=== PATIENT | female | born 2000 | race Caucasian/White ===

== ENCOUNTER 2022-09-10 13:27 | Emergency (ER) | payer OTHER, SELFPAY ==
[2022-09-10 13:40] VITALS: BP 108/65; PULSE 105; RESP 20; TEMP 36.6; O2SAT 100
--- NOTE | 2022-09-10 15:03 | ED.DENTAL ---
HPI - Dental/Oral General Chief complaint: Dental/Oral Stated complaint: tooth pain/swelling Time Seen by Provider: 09/10/22 14:55 Source: patient, RN notes reviewed and old records reviewed Mode of arrival: ambulatory Limitations: no limitations History of Present Illness HPI Narrative: #17 tooth with swelling of22 year old female who presents to [facility] with complaints of dental pain and some facial swelling to the left posterior jaw area since yesterday. Patient reports most posterior tooth on left back tooth noted to have swelling of gum and redness . Patient has reports no dentist, list given. Patient reports no difficulty swallowing or any trismus noted, respirations even and nonlabored, SAO2 100% on room air. Patient is 4 1/2 months . MD Complaint: tooth pain Location: Tooth # (#17) Onset (ago): day(s) (1) Severity scale (1-10): 8 Treatment prior to arrival: oral analgesic (Tylenol) Related Data Home Medications Medication Instructions Recorded Confirmed ondansetron 4 mg disintegrating 4 mg PO Q8-10H PRN Nausea 09/10/22 09/10/22 tablet Allergies Allergy/AdvReac Type Severity Reaction Status Date / Time No Known Allergies Allergy Verified 09/10/22 13:48 Review of Systems Review of Systems: CONSTITUTIONAL: Denies fever, chills, or sweats. ENT: Denies rhinorrhea, congestion, sore throat, or otalgia. Reports dental pain with swelling to left posterior jaw region CARDIOVASCULAR: Denies chest pain, palpitations, or edema. RESPIRATORY: Denies cough or dyspnea. SKIN: Denies rash or itching. MUSCULOSKELETAL: Denies myalgia. NEUROLOGIC: Denies headache All systems reviewed & are unremarkable except as noted in HPI and below PMFSH Social History Social History (Updated 09/12/22 @ 14:04 by Sarah June NP) Smoking status: Never smoker Gender identity (if verbalized by the patient): Female Comments At time of signature, agree with nursing past medical, surgical, social and family history. There is no relevant family history pertinent to the presenting complaint Exam Narrative: GENERAL: Well-appearing, well-nourished, and in no acute distress. HEAD: Normocephalic, atraumatic. EYES: PERRLA and E ENT: Nares clear, no rhinorrhea or epistaxis. Mucous membranes moist. #17 tooth with red swollen gum tooth has broken edge facial swelling present to left posterior jaw, No Leo angina or trismus noted NECK: Supple.no lymphadenopathy CHEST: Clear to auscultation. No respiratory distress.SAO2 100% on room air HEART: Regular rate and rhythm. No murmur heard. Normal peripheral pulses. SKIN: Warm, dry, no rash. NEURO: No focal deficits. Alert and oriented x3. Course Course Emergency Course: Patient is aware of diagnosis, understands and agrees to treatment plan. Anticipatory guidance given. Patient agrees to follow-up as directed and is aware of reasons to seek care at the emergency department. Portions of this record may have been created with voice recognition software Level of Care: Express Care Visit Vital Signs Vital signs: Vital Signs Temperature 36.6 C 09/10/22 13:40 Pulse Rate 105 H 09/10/22 13:40 Respiratory Rate 20 09/10/22 13:40 Blood Pressure 108/65 09/10/22 13:40 Pulse Oximetry 100 09/10/22 13:40 Oxygen Delivery Room Air 09/10/22 13:40 Temperature 36.6 C 09/10/22 13:40 Pulse Rate 105 H 09/10/22 13:40 Respiratory Rate 20 09/10/22 13:40 Blood Pressure 108/65 09/10/22 13:40 Pulse Oximetry 100 09/10/22 13:40 Oxygen Delivery Room Air 09/10/22 13:40 Reviewed MDM - Dental/Oral MDM Narrative Medical decision making narrative: Patients pain and complaint coupled with physical findings are consistent with dentalgia. There are no focal signs of space occupying lesions that are compromising to the airway; no dysphagia, odynophagia, dysphonia, or dyspnea. No uvular deviation or soft palate edema. Patient is non-toxic appearing. The
== END 2022-09-10 15:22 | disposition home or self-care (01) ==
PROVIDERS: Emergency Provider Registered Nurse
DX: O99.612 Diseases of the digestive system complicating pregnancy, second trimester (principal); Z3A.00 Weeks of gestation of pregnancy not specified; K04.7 Periapical abscess without sinus
CPT/HCPCS: 99213; G0463

== ENCOUNTER 2023-05-27 13:45 | Emergency (ER) | payer SELFPAY ==
--- NOTE | 2023-05-27 13:51 | ED.DENTAL ---
HPI - Dental/Oral General Chief complaint: Dental/Oral Stated complaint: Toothache Time Seen by Provider: 05/27/23 13:52 Source: patient and RN notes reviewed Mode of arrival: ambulatory Limitations: no limitations History of Present Illness HPI Narrative: 22-year-old female presents with concern for right lower dental pain for 1 week. She reports right jaw swelling. She reports she has a dentist appointment in 2 months. She has been taking ibuprofen. MD Complaint: tooth pain Related Data Home Medications Medication Instructions Recorded Confirmed ondansetron 4 mg disintegrating 4 mg PO Q8-10H PRN Nausea 09/10/22 09/10/22 tablet Allergies Allergy/AdvReac Type Severity Reaction Status Date / Time No Known Allergies Allergy Verified 09/10/22 13:48 Review of Systems Review of Systems: CONSTITUTIONAL: Denies malaise, chills, sweats, or fever. EYES: Denies visual changes, redness, or discharge. ENT: Denies rhinorrhea, congestion, sinus pain, otalgia and sore throat. Reports right lower dental pain CARDIOVASCULAR: Denies chest pain, palpitations, or edema. RESPIRATORY: Denies cough. Denies dyspnea. GASTROINTESTINAL: Denies abdominal pain, nausea, vomiting, diarrhea SKIN: Denies rash or itching. MUSCULOSKELETAL: Denies myalgia. NEUROLOGIC: Denies headache. All systems reviewed & are unremarkable except as noted in HPI and below PMFSH Social History Social History (Updated 09/12/22 @ 14:04 by Sarah June NP) Smoking status: Never smoker Gender identity (if verbalized by the patient): Female Comments At time of signature, agree with nursing past medical, surgical, social and family history. There is no relevant family history pertinent to the presenting complaint Exam Narrative: GENERAL: Well-appearing, well-nourished, and in no acute distress. HEAD: Normocephalic, atraumatic. EYES: PERRLA, sclera clear, and EOMI. No nystagmus. ENT: Nares clear, turbinates pink, no rhinorrhea or epistaxis. Mucous membranes moist. Decay noted in tooth number 30 with mild sharp swelling NECK: Supple. No lymphadenopathy. CHEST: No respiratory distress. Speaks in full sentences. HEART: Regular rate and rhythm. SKIN: Warm, dry, no visible rash. NEURO: Alert and oriented x3. PSYCH: Normal mood and affect Course Course Emergency Course: Patient is aware of diagnosis, understands and agrees to treatment plan. Anticipatory guidance given. Patient agrees to follow-up as directed and is aware of reasons to seek care at the emergency department. Portions of this record may have been created with voice recognition software Level of Care: Express Care Visit Vital Signs Vital signs: Reviewed. MDM - Dental/Oral MDM Narrative Medical decision making narrative: Patients pain and complaint coupled with physical findings are consistant with dentalgia. There are no focal signs of space occupying lesions that are compromising to the airway; no dysphagia, odynophagia, dysphonia, or dyspnea. No uvular deviation or soft palate edema. Patient is non-toxic appearing. The floor of the mouth is soft with no signs of Leo's Angina; no induration below mandible, no neck pain. Patient is without trismus or drooling and able to swallow secretions. Patient is felt appropriate for discharge home with dental follow up. Differential Diagnosis Differential diagnosis: Likely gingival abscess, dental caries, toothache, dental abscess, fracture of tooth and aphthous ulcer Lab Data Attestation: I reviewed the patient's lab results. Critical Care Time Critical Care Time Critical Care Time: No Discharge Plan Discharge Clinical Impression: Pain, dental Patient Disposition: Home, Self-Care Condition: Stable Instructions: Antibiotic Form Additional Instructions: Take antibiotic as directed Avoid temperature extremes May apply heat or ice to the face Gentle brushing and flossing Take 2 extra strength Tylenol
[2023-05-27 13:53] VITALS: BP 126/49; PULSE 77; RESP 16; TEMP 36.7; O2SAT 99
== END 2023-05-27 14:03 | disposition home or self-care (01) ==
PROVIDERS: Emergency Provider Nurse Practitioner
DX: K08.89 Other specified disorders of teeth and supporting structures (principal); I10 Essential (primary) hypertension
CPT/HCPCS: 99213; G0463

== ENCOUNTER 2023-08-22 10:04 | Emergency (ER) | payer OTHER, SELFPAY ==
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
[2023-08-22 10:35] VITALS: BP 139/79; PULSE 89; RESP 18; TEMP 36.8; O2SAT 100
== END 2023-08-22 11:09 | disposition home or self-care (01) ==
PROVIDERS: Emergency Provider Nurse Practitioner
DX: Z04.1 Encounter for examination and observation following transport accident (principal)
CPT/HCPCS: 99212; G0463

== ENCOUNTER 2024-01-06 14:42 | Emergency (ER) | payer OTHER, SELFPAY ==
[2024-01-06 14:52] VITALS: BP 115/72; PULSE 94; RESP 18; TEMP 37.1; O2SAT 99
--- NOTE | 2024-01-06 15:01 | ED.DENTAL ---
HPI - Dental/Oral General Chief complaint: Dental/Oral Stated complaint: Toothache History of Present Illness HPI Narrative: patient is a 23-year-old female, , 32 weeks , presents to [facility] Care with right lower dental pain, she is a known dental cavity in her wisdom tooth but cannot have the tooth extracted until She delivered her baby. She denies fevers or chills. She has no facial swelling, sublingual swelling. She denies related complaints. She endorses good movement. she is taking Tylenol and using topical lidocaine gel with minimal relief. She denies any additional complaints. She has not established dentist at [facility] and will make an appointment with them for follow-up. Related Data Home Medications Medication Instructions Recorded Confirmed Daily 08/22/23 Allergies Allergy/AdvReac Type Severity Reaction Status Date / Time No Known Allergies Allergy Verified 01/06/24 14:53 Review of Systems ENT: Comments: Refer to [facility] Social History Social History Smoking status: Never smoker Gender identity (if verbalized by the patient): Female Exam Const: General: cooperative, healthy appearing, comfortable and no acute distress Nutritional Appearance: average body habitus and well nourished Orientation/consciousness: oriented to person, oriented to place, oriented to time and patient oriented x3 Limitations: no limitations HENMT: Head: normal to inspection Ears: hearing grossly normal bilaterally, external ears normal and TM's normal bilaterally Face and sinus: normal facial exam and sinuses nontender Teeth and gingiva: caries Teeth image: 1. gross decay noted Other: no intraoral abscess, no sublingual swelling, no trismus Eyes: General: appearance normal, both eyes and all related structures Conjunctivae: conjunctivae normal Pupils: Equal, round and reactive pupils present EOM: EOMs intact bilaterally Neck: Neck: normal visual inspection, full ROM, no lymphadenopathy, no meningeal signs and trachea midline Thyroid: thyroid normal Carotids: normal carotid upstroke Lymphatic: no lymphadenopathy noted Chest: Chest palpation & inspection: normal inspection of the chest Resp: Effort & Inspection: normal respiratory effort Cardio: Rate: regular rate Rhythm: regular rhythm GI: Inspection: normal to inspection ( gravid uterus) Back/Spine/Pelvis: Back: no CVA tenderness Skin: General skin exam: normal color Lesions: no lesions Rashes: no rashes Neuro: General: oriented to person, oriented to place, oriented to time and patient oriented x3 Cranial nerves: Yes CN's II-XII intact bilaterally Cognition (Neuro): normal cognition Speech: normal speech Motor exam (neuro): 5/5 motor strength present throughout Extrem: General: normal to inspection and full ROM Course Course Emergency Course: patient has obvious dental decay and recurring dental infection a right lower molar/wisdom tooth. She does have an established dentist. They are waiting for her to complete her before extracting issues. Will treat with Augmentin b.i.d. for 10 days. Patient is encouraged to pressure teeth well, to follow up with her primary care provider / OBGYN if she is unable to see her dentist in timely manner as she is managed at [facility] dental [facility]. ER she developed swelling in the sublingual space. Patient agreeable to plan. Level of Care: Express Care Visit (25447) Vital Signs Vital signs: Vital Signs Temperature 37.1 C 01/06/24 14:52 Pulse Rate 94 01/06/24 14:52 Respiratory Rate 18 01/06/24 14:52 Blood Pressure 115/72 01/06/24 14:52 Pulse Oximetry 99 01/06/24 14:52 Oxygen Delivery Room Air 01/06/24 14:52 Temperature 37.1 C 01/06/24 14:52 Pulse Rate 94 01/06/24 14:52 Respiratory Rate 18 01/06/24 14:52 Blood Pressure 115/72
--- NOTE | 2024-01-06 16:35 | PC.NURSE ---
called and requested pharmacy to be changed to [facility] in [place] and was done.
== END 2024-01-06 15:13 | disposition home or self-care (01) ==
PROVIDERS: Emergency Provider Nurse Practitioner Family
DX: O99.613 Diseases of the digestive system complicating pregnancy, third trimester (principal); Z3A.32 32 weeks gestation of pregnancy; K02.9 Dental caries, unspecified
CPT/HCPCS: 99213; G0463

== ENCOUNTER 2024-08-09 12:59 | Emergency (ER) | payer OTHER, SELFPAY ==
[2024-08-09 13:09] VITALS: BP 106/70; PULSE 88; RESP 16; TEMP 36.9; O2SAT 98
[2024-08-09 13:27] LABS: EDCOVIDSCREEN Negative (Negative); EDINFLUASCREEN Negative (Negative); EDINFLUBSCREEN Negative (Negative)
--- NOTE | 2024-08-09 13:40 | ED.FEVER ---
HPI - Fever General Chief Complaint: Fever Stated Complaint: fever Time Seen by Provider: 08/09/24 13:40 Source: patient, RN notes reviewed and old records reviewed Mode of arrival: ambulatory Limitations: no limitations History of Present Illness HPI Narrative: 24-year-old female presents to the [facility] stating that she was not feeling well last week. Last she believes she had a fever, took [id number] products. has felt better the last 2 days. States that she needs a work note to return to work. Related Data Home Medications ?Medication ?Instructions ?Recorded ?Confirmed ?Last Taken ?Type No Home Medications 08/09/24 Unknown History Allergies Allergy/AdvReac Type Severity Reaction Status Date / Time No Known Allergies Allergy Verified 08/09/24 13:09 Review of Systems Review of Systems: All systems reviewed & are unremarkable except as noted in HPI and below Constitutional: Constitutional: Reports as per HPI, Reports body ache(s), Reports fatigue and Reports fever(s) ENT: Reports system reviewed and no additional complaints, except as documented Cardiovascular: Cardiovascular: Reports no additional cardiovascular complaints, Denies chest pain and Denies dyspnea Respiratory: Respiratory: Reports no additional respiratory complaints, Denies chest congestion, Denies cough and Denies dyspnea Musculoskeletal: Musculoskeletal: Reports no additional musculoskeletal complaints Integumentary/Breasts: Skin/Breast: Reports system reviewed and no additional complaints, except as docu PMFSH Social History Social History Smoking status: Never smoker Gender identity (if verbalized by the patient): Female Comments At the time of my signature, I reviewed and agree with the nursing past medical, surgical, social, and family history. There is no relevant family history pertinent to the patient complaint. Exam Const: General: cooperative, healthy appearing, comfortable, no acute distress, well developed, alert and well nourished Nutritional Appearance: well nourished and obese Orientation/consciousness: patient oriented x3 Limitations: no limitations HENMT: Head: normal to inspection Ears: hearing grossly normal bilaterally, external ears normal, TM's normal bilaterally, EAC's normal, mastoids normal and no periauricular adenopathy Mouth: Yes Normal oral and palatal mucosa present, Yes lip normal, Yes tongue normal and Yes moist mucous membranes Throat: posterior oropharynx normal, uvula midline and no uvular edema Eyes: General: appearance normal, both eyes and all related structures Alignment and Position: alignment normal Neck: Neck: normal visual inspection, full ROM, no lymphadenopathy and no meningeal signs Chest: Chest palpation & inspection: normal inspection of the chest Resp: Effort & Inspection: normal respiratory effort and able to speak in complete sentences Auscultation: clear to auscultation bilaterally, no crackles, no rales, no rhonchi and no wheezes Cardio: Rate: regular rate Skin: General skin exam: normal color and no rashes or lesions noted Neuro: General: patient oriented x3, gait normal, moves all extremities and no meningeal signs Cognition (Neuro): normal cognition Speech: normal speech Gait exam (Neuro): Normal gait present Extrem: General: normal to inspection, full ROM, capillary refill normal and normal gait Psych: Appearance: grossly normal and well kempt Mental Status: mental status grossly normal Speech and movement: Normal speech and movement present and Clear speech present Affect: normal affect Attitude: cooperative Course Course Level of Care: Express Care Visit Vital Signs Vital signs: Vital Signs Temperature 98.5 F 08/09/24 13:09 Pulse Rate 88 08/09/24 13:09 Respiratory Rate 16 08/09/24 13:09 Blood Pressure 106/70 08/09/24 13:09 Pulse Oximetry 98 08/09/24 13:09 Oxygen Delivery Room Air 08/09/24 13:09 Temperature 98.5 F 08/09/24 13:09 Pulse Rate 88 08/09/24 13:09 Respiratory Rate 16 08/09/24 13:09 Blood Pressure 106/70 08/09/24 13:09 Pulse Oximetry 98 08/09/24 13:09 Oxygen Delivery Room Air 08/09/24 13:09 Reviewed MDM - Fever MDM Narrative Medical decision making narrative: Patient sitting comfortably in exam room. Nontoxic, vitals stable. Patient in no acute distress. Patient presents stating that she was not feeling well last week, last 2 days have been feeling better. Flu and COVID were negative in clinic. Patient appropriate for outpatient treatment and follow-up Discharge instructions reviewed with patient, as well as provided in writing per nursing staff. The instructions also include specific and strict return/GO TO THE ER as well as f/u information. All questions have been answered, and the patient deny any further questions with discharge and discharge plan. Some parts of this dictation were generated by voice recognition software and may contain typographical and/or grammatical inaccuracies. Differential Diagnosis Differential diagnosis: Likely fever of unknown origin, viral infection and influenza Lab Data Labs: Lab Results 08/09/24 Range/Units 13:25 POC Influenza A Ag Negative (Negative) POC Influenza B Ag Negative (Negative) POC SARS CoV-2 Ag Negative (Negative) Reviewed Critical Care Time Critical Care Time Critical Care Time: No Discharge Plan Discharge Clinical Impression: Viral infection Patient Disposition: Home, Self-Care Condition: Stable Instructions: Antibiotic Form, Viral Syndrome (ED) Additional Instructions: [facility] rapid COVID test were negative Your rapid flu test was negative Your symptoms are likely due to a viral illness, which is not treated with antibiotics. Typically viral infections last 7-10 days, can linger for couple of weeks. It is very important to treat your symptoms. Drink plenty of water, Gatorade, Pedialyte, ice pops or Jell-O. -Alternate Tylenol and Motrin per package directions for fever or pain. You can alternate every 4 hours -Antihistamine medication such as Zyrtec/Claritin/Nellie during the day can help improve symptoms. -doing daily nasal irrigations can help relieve pressure your sinuses. Things like a Neti pot -Use Flonase twice a day for 5 days then daily to help reduce the inflammation and dry up your sinuses. -You can also use Mucinex. Be sure to drink plenty of water with this medication at least 8 ounces with every dose and it is important to drink 8 to 10 glasses of water per day. Water is a natural decongestant -Eat and drink things that are easy to swallow, like tea or soup, or popsicles. -Oral rinses such as: Salt water gargles and/or may use topical anesthetic (eg. Chloraseptic spray) or lozenges to relieve dryness or throat pain). -Frequent hand washing or hand cut off saw grader is one of the best ways to prevent spread of infection. -Using a vaporizer or humidifier at night will also help thin secretions and help with coughing up phlegm. -Follow up with primary care provider in 7-10 days if condition is not improving - For new or worsening symptoms go directly to the nearest ER Patient Language: Luxembourgish Prescriptions: No Action No Home Medications Follow-up/Referrals: PHYSICIAN,SALES ASSISTANT [employer] [Primary Care Provider] - Stand Alone Forms: Work/School Release IP Time of Disposition: 13:45
--- OUTSIDE RECORDS SUMMARY | 2024-08-09 14:10 | XMS_ITS | Referral Summary ---
Author Organization CC [facility] [address] Address [address] [place] [address] Phone Care Team Providers Care Utilities Manager Name Role Phone Dagmar Eli DO Unavailable [phone] No, Physician Primary Care Provider [phone] Encounters Date Type Department Care Team Description 07/26/2024 Results Follow-Up [address] [id number] Dagmar Eli DO 07/16/2024 2:36 PM HEARING DOG TRAINER - 07/16/2024 11:59 PM HEARING DOG TRAINER [place] [address] Screening for malignant neoplasm of cervix Discharge Disposition: Discharge to home or self care 07/16/2024 2:15 PM HEARING DOG TRAINER Office Visit [facility] [address] [place] [address] Dagmar Eli DO Encounter for annual routine gynecological examination (Primary Dx); Screening for malignant neoplasm of cervix; Encounter for counseling regarding contraception; Breakthrough bleeding on Nexplanon 07/05/2024 Telephone [facility] [address] [place] [address] Dagmar Eli DO Patient issue/concern 06/22/[facility] [address] [place] [address] Dagmar Eli DO 06/03/2024 Telephone [facility] [address] [place] [address] Dagmar Eli, from Last 3 Months Allergies Active Allergy Reactions Criticality Noted Date Comments Lactose Diarrhea Low 03/15/2024 Medications no115/iron/folic acid ( 19 ORAL) Active ondansetron ODT (ZOFRAN-ODT) 4 mg disintegrating tablet TAKE 1 TABLET BY MOUTH EVERY 8 HOURS NEEDED FOR NAUSEA AND VOMITING 30 tablet 03/03/20 24 Active Additional Information Patient not taking.Reported on 07/16/2024 docusate sodium (COLACE) 100 mg capsuleIndications :constipation,Stoo l Softener Take 1 capsule (100 mg total) by mouth 2 (two) times a day 60 capsule 1 03/16/20 24 Active Additional Information Patient not taking.Reported on 07/16/2024 ibuprofen (ADVIL,MOTRIN) 600 mg tabletIndications: Cramps Take 1 tablet (600 mg total) by mouth every 6 (six) hours as needed for pain 60 tablet 1 03/16/20 24 Active Additional Information Patient not taking.Reported on 07/16/2024 norgestimate-ethin yl estradioL (ORTHO-CYCLEN) 0.25-35 mg-mcg per tablet Take 1 tablet by mouth daily 28 tablet 14 07/17/19 25 Active Active Problems Problem Noted Date Diagnosed Date Supervision of normal in third trimest er 03/15/2024 Short interval between pregn ancies affecting in first trimester, antepartum 07/29/2023 Overview (07/29/2023): Last delivery 12/31/22 Insufficient care 07/28/2023 Overview (07/28/2023): Growth US 04/04 EFW 1988gm(4#6oz) 38.2%ile ; Anatomy completed Gestational HTN, third trimester 12/31/2022 Encounter for supervision of normal in first trimester 05/20/2022 Overview (08/12/2023): Dated by 6w4d PNL: O+/I/-/-, NR, Hep C NR GC/CT: neg UCx: neg Pap: LSIL Genetics: to be discussed at next visit History of gestational hypertension 05/20/2022 Overview (07/29/2023): Moderate risk factor for Pre-E and she BMI 40 at NOB which is another moderate risk factor. Plan for ASA for pre-eclampsia prophylaxis beginning at 12 weeks. Discussed with the patient today. Obesity affecting in first trimester 0 05/20/2022 Overview (07/29/2023): BMI 40 at NOB. Will plan for serial growth ultrasounds and testing at 34 weeks. Marijuana use 05/20/2022 Overview (05/20/2022): S/p counseling and cessation encouraged. Pt also vapes and was counseled on this as well with cessation encouraged. Viral disease in mother during 021 Overview (07/28/2023): Other viral diseases complicating , unspecified trimester; Progress: Stable Added By: Ashlee Olivo Add to Current Problems: YES ProblemStatus: Current Resolved Problems Problem Noted Date Diagnosed Date Resolved Date Encounter for routine child health examination without abnormal findings 12/19/2017 Attention deficit hyperactiv ity disorder (ADHD), predominantly inattentive type 01/10/2017 0 06/13/2022 Overview (03/05/2018): Dexamphetamine XR 30mg 1QD, 917 New Agreement Signed & UDS shows compliance. Adderall 20XR am. Immunizations Immunization Administration Dates Next Due DTaP 03/12/2007, 4,03/31/2003,12/30,2002 HPV9 02/02/2016 Hep B / HiB 03/31/2003,2002,2002 Hib (PRP-T) 11/17/2003 IPV 03/12/2007, 4,2002,09/23 Influenza, Trivalent, Preser vative Free, Intramuscular 03/16/2024 MMR 03/12/2007,08/18/2003 Meningococcal ACWY, Unspecified 12/21/2013 Tdap 03/16/2024,12/21/2013 Varicella 02/02/2016,09/29/2003 Social History Tobacco Use Types Packs/Day Years Used Date Smoking Tobacco: Former Vaping 2 019 - 03/2021 Smokeless Tobacco: Never Tobacco Cessation:Counseling Given: Not Answered Humiliation, Afraid, Rape, and Kick questionnair e Answer Date Recorded Within the last year, have y ou been afraid of your partner or ex-partner? No 01/02/2023 Within the last year, have y ou been humiliated or emotionally abused in other ways by your partner or ex-partner? No Within the last year, have y ou been kicked, hit, slapped, or otherwise physically hurt by your partner or ex-partner? No 01/02/2023 Within the last year, have y ou been raped or forced to have any kind of sexual activity by your partner or ex-partner? No 01/02/2023 Social Connection and Isolat ion Panel [NHANES] Answer Date Recorded In a typical week, how many times do you talk on the phone with family, friends, or neighbors? More than three times a week 03/15/2024 How often do you get togethe r with friends or relatives? Once a week 03/15/2024 How often do you attend chur or congregational services? Never 03/15/2024 Do you belong to any clubs o r organizations such as taoist groups, unions, fraternal or athletic groups, or school groups? No 03/15/2024 How often do you attend meet ings of the clubs or organizations you belong to? Never 03/15/2024 Are you , , di vorced, , never , or living with a partner? Living with partner 03/15/2024 AUDIT-C Answer Date Recorded Q1: How often do you have a drink containing alcohol? Never 03/15/2024 Q2: How many drinks containi ng alcohol do you have on a typical day when you are drinking? Patient does not drink Q3: How often do you have si x or more drinks on one occasion? Never 03/15/2024 Overall Financial Resource Strain (CARDIA) Answe r Date Recorded How hard is it for you to pa y for the very basics like food, housing, medical care, and heating? Not hard at all 03/15/2024 PHQ-2 Answer Date Recorded PHQ-2 Total Score (If total score is 3 or more points, staff should administer the PHQ-9) 0 03/15/2024 [facility] - Occupational Stress Questionnaire Answer Date Recorded Do you feel stress - tense, restless, nervous, or anxious, or unable to sleep at night because your mind is troubled all the time - these days? Not at all 03/15/2024 Exercise Vital Sign Answer Date Recorde d On average, how many days pe r week do you engage in moderate to strenuous exercise (like a brisk walk)? 7 days 03/15/2024 On average, how many minutes do you engage in exercise at this level? 30 min 03/15/2024 Hunger Vital Sign Answer Date Recorded Within the past 12 months, y ou worried that your food would run out before you got the money to buy more. Never true 03/15/20 24 Within the past 12 months, t he food you bought just didn't last and you didn't have money to get more. Never true 03/15/2024 PRAPARE - Transportation Answer Date Re corded In the past 12 months, has l ack of transportation kept you from medical appointments or from getting medications? No 08/2023 In the past 12 months, has l ack of transportation kept you from meetings, work, or from getting things needed for daily living? No 03/15/2024 Housing Stability Vital Sign Answer Alvarez e Recorded In the last 12 months, was t here a time when you were not able to pay the mortgage or rent on time? No 09/10/2023 In the last 12 months, how many places have you lived? 1 09/10/2023 In the last 12 months, was t here a time when you did not have a steady place to sleep or slept in a retirement (including now)? No 09/10/2023 [place] Depression Scale Answer Date Recorded [place] Depression Scale Total 0 01/02/2023 The thought of harming myself has occurred to me . Never 01/02/2023 PHQ-9 Answer Date Recorded PHQ-9 Total Score 0 03/01/2024 Housing Stability Vital Sign Answer Alvarez e Recorded In the last 12 months, was t here a time when you were not able to pay the mortgage or rent on time? No 03/15/2024 In the past 12 months, how m any times have you moved where you were living? 0 03/15/2024 At any time in the [facility], were you homeless or living in a retirement (including now)? No 03/15/2024 Personal Safety Answer Date Recorded Have you ever been in or are you currently in a harmful physical or emotional relationship or is someone making you feel afraid or unsafe? Denies 03/15/2024 Comments No Sex and Gender Information Value Date Recorded Sex Assigned at Not on file Legal Sex Female 11:36 AM HEARING DOG TRAINER Gender Identity Not on file Sexual Orientation Not on file Occupation Industry Job Start Date Job End Date Not on file Not on file Not on file Not on file Last Filed Vital Signs Vital Sign Reading Time Taken Comments Blood Pressure 122/80 07/16/2024 2:12 PM HEARING DOG TRAINER Pulse 102 03/16/2024 4:15 PM HEARING DOG TRAINER Temperature 35.8 C (96.4 F) 03/16/2024 4:15 PM HEARING DOG TRAINER Respiratory Rate 17 03/16/2024 4:15 PM HEARING DOG TRAINER Oxygen Saturation 95% 03/15/2024 2:14 PM HEARING DOG TRAINER Inhaled Oxygen Concentration - - Weight 104.8 kg (231 lb) 07/16/2024 2:12 PM HEARING DOG TRAINER Height 160 cm (5' 3 ) 03/01/2024 11:40 AM CDT Body Mass Index 40.92 03/01/2024 11:40 AM CDT Plan of Treatment Not on file Procedures Procedure Name Priority Date/Time Associated Diagnosis Comments PAP WITH REFLEX TO HIGH RISK HPV Routine 07/16/2024 11:20 AM HEARING DOG TRAINER Screening for malignant neoplasm of cervix HIGH RISK HPV DNA DETECTION WITH GENOTYPING Routine 07/16/2024 10:15 AM HEARING DOG TRAINER THINPREP PROCESSING (MOLECULAR COMPONENT) Routine 07/16/2024 9:30 AM HEARING DOG TRAINER Screening for malignant neoplasm of cervix HEPATITIS C ANTIBODY Routine 08/08/2023 11:30 AM CDT Encounter for supervision of other normal in first trimester 6 weeks gestation of N. GONORRHOEAE/C. TRACHOMATIS AMPLIFICATION Routine 07/29/2023 1:59 PM CDT Screen for sexually transmitted diseases from Last 3 Months or Most Recently Relevant to Health Maintenance Results * (ABNORMAL) Pap with reflex to High Risk HPV and Genotyping (Cytology Component) (07/16/2024 11:20 AM HEARING DOG TRAINER) Thin prep (Pap test) 07/16/2024 11:20 AM HEARING DOG TRAINER 07/16/2024 11:20 AM HEARING DOG TRAINER Narrative PATHOLOGY CH - 07/21/2024 4:18 PM CDT [facility] Department of Pathology [address] [place] [address] Final Report with Addendum Note to Patients: This report may contain a detailed description of human tissue sent by a health care provider to the laboratory for pathologic evaluation. The content of this report is essential for diagnosis and may provide important critical findings. This information may be unfamiliar to patients to review without a medical professional present. It is advised that the patient review this report in the presence of a health care provider who can answer questions and explain the details. Patient Name: TOD HOLLAND Address: [address] [place] [address] Gender: F : 2000 (Age: 23) Service: Location: N : [id number] [facility] #: [id number] Patient Type: SPECIMEN Taken: 07/16/2024 Received: 07/16/2024 Accessioned:: 07/19/2024 Reported: 07/21/2024 Physician(s): Edith Stewart D.O. Diagnosis: SOURCE OF SPECIMEN Imaged Thinprep Pap Test w/ Reflex HPV - Tunnel Form Placing Supervisor Cytologic Material: STATEMENT OF ADEQUACY - Satisfactory for evaluation; endocervical/transformation zone component present GENERAL CATEGORIZATION: - Epithelial cell abnormality INTERPRETATION: - Atypical squamous cells of undetermined significance; - High risk HPV test pending -- addendum to follow Tere MART(ASCP)Kris Mcconnell M.D. Report Electronically Reviewed and Signed Out By Kris Mcconnell M.D. 07/21/2024 16:18:11Addenda: HPV Test Interpretation (Normal-Negative for High Risk HPV) HPV HR 16- Not detected HPV HR 18-Not detected HPV HR non 16/18- Not detected Interpretive Data Nucleic acid amplification for detection of high-risk Human Papilloma virus (HPV) is performed by the Gunnar Joel 6800 HPV test. This assay specifically detects HPV- 16 and HPV-18 genotypes. The following HPV genotypes are detected as high-risk HPV: HPV-31, 33, 35, 39, 45, 51, 52, 56, 58, 59, 66, and 68. This assay has been approved by the [place] Food and Drug Administration for detection of HPV in cervical specimens collected by a physician using an endocervical brush/spatula or cervical broom and placed in the ThinPrep Pap Test PreservCyt collection containers. The performance characteristics of this test have been verified by the [facility] Molecular Infectious Disease laboratory. Correlate with reported cytology results, as applicable. Interpretive data last revised 22 BRITTNY Watkins(ASCP)Report Electronically Reviewed and Signed Out By BRITTNY Watkins(ASCP) 07/26/2024 11:47:20 Specimen(s) Received: A: Imaged Thinprep Pap Test w/ Reflex HPV - Tunnel Form Placing Supervisor Cytologic Material Clinical History: The Pap test is a screening test used to aid in the detection of cervical cancer and its precursors. It should not be the sole means by which malignant and premalignant lesions are diagnosed. Both false negative and false positive results may occur. It also has poor sensitivity for the detection of endometrial lesions and should not be used to evaluate suspected endometrial abnormalities. For these reasons it is most important to obtain Pap tests at regular intervals. The performance characteristics of some immunohistochemical stains, fluorescence in-situ hybridization tests and immunophenotyping by flow cytometry cited in this report (if any) were determined by the Surgical Pathology Department at [facility] as part of an ongoing water quality technician program and in compliance with federally mandated regulations drawn from the Clinical Laboratory Improvement Act of 1988 (CLIA '88). Some of these tests rely on the use of analyte specific reagents and are subject to specific labeling requirements by the [place] Food and Drug Administration. Such diagnostic tests may only be performed in a facility that is certified by the Department of Health and Human Services as a high complexity laboratory under CLIA '88. The FDA has determined that such clearance or approval is not necessary. This test is used for clinical purposes. It should not be regarded as investigational or for research. Nevertheless, federal rules concerning the medical use of analyte specific reagents require that the following disclaimer be attached to the report: This test was developed and its performance characteristics determined by the Surgical Pathology Department [facility]. It has not been cleared or approved by the U. S. Food and Drug Administration. Dagmar Eli DO LAB CYTOLOGY ORDERABLES Final Result PATHOLOGY [address] [place] [address] * High Risk HPV DNA Detection with Genotyping (Molecular component) (07/16/2024 10:15 AM HEARING DOG TRAINER) HPV HR 16 Not Detected Not Detected [facility] Comment:Testing performed by : [facility], [address] [place]., [address] HPV HR 18 Not Detected Not Detected [facility] Comment:Testing performed by : [facility], [address] [place]., [address] HPV HR Non 16/18 Not Detected Not Detected [facility] Comment: Interpretive Data Nucleic acid amplification for detection of high-risk Human Papilloma virus (HPV) is performed by the Gunnar Joel 6800 HPV test. This assay specifically detects HPV-16 and HPV-18 genotypes. The following HPV genotypes are detected as high-risk HPV: HPV-31, 33, 35, ,39, 45, 51, 52, 56, 58, 59, 66, and 68. This assay has been approved by the [place] Food and Drug Administration for detection of HPV in cervical specimens collected by a physician using an endocervical brush/spatula or cervical broom and placed in the ThinPrep Pap Test PreservCyt collection containers. The performance characteristics of this test have been verified by the [facility] Molecular Infectious Disease laboratory. Correlate with separately reported cytology results, as applicable. Interpretive data last revised 22 Testing performed by: [facility], [address] [place]., [address] Endocervical 07/16/2024 10:1 5 AM HEARING DOG TRAINER 07/22/2024 12:52 PM CDT Dagmar Eli DO LAB BODY FLUIDS AND STO OLS ORDERABLES Final Result Performing Organization Address City[facility] Co de Phone Number RAQUEL FARIA [address] [address] [place] [address] BJ * ThinPrep processing (Molecular component) (07/16/2024 9:30 AM HEARING DOG TRAINER) Pathologist [facility] ThinPrep processing (Molecular component) Specimen received for processing. [facility] Comment:Testing performed by : [facility], [address] [place]., [address] Endocervical 07/16/2024 9:30 AM HEARING DOG TRAINER 07/19/2024 2:14 PM CDT Dagmar Eli DO LAB BODY FLUIDS AND STO OLS ORDERABLES Final Result Performing Organization Address City/[facility] [place] Number [place] [address] [address] [place] [address] BJ * Hepatitis C antibody Blood (08/08/2023 11:30 AM CDT) Pathologist [facility] Hep C Ab Nonreactive Nonreactive Comment: Interpretive Data Nonreactive: Antibodies to HCV not detected. Does NOT exclude the possibility of recent exposure to HCV. Equivocal: Equivocal for HCV antibodies. Supplemental molecular testing will be automatically performed to determine infection status in accordance with current CDC screening recommendations. Reactive: Positive for HCV antibodies. This may represent current or past HCV infection. Supplemental molecular testing will be automatically performed to determine current infection status in accordance with current CDC screening recommendations. Interpretive data was last revised on 2019. Blood 08/08/2023 11:3 0 AM CDT 08/08/2023 7:52 PM CDT Dagmarrod CanalesPaola Sreedhar GARCIA LAB MICROBIOLOGY - GENE RAL ORDERABLES Edited Result - Final Performing Organization Address City/[facility]/ZIP Co de Phone Number BENJALEESA FARIA [address] [address] [employer] [address] * N. gonorrhoeae/C. trachomatis Amplification Thin prep (07/29/2023 1:59 PM CDT) C. trachomatis Not Detected [facility] Comment:Testing performed by : [facility], [address] [place] [address]., [address] N. gonorrhoeae Not Detected [facility] FARIA Comment: Interpretive Data This assay detects Chlamydia trachomatis and Neisseria gonorrhoeae by nucleic acid amplification testing (NAAT). This assay has been cleared by the [place] Food and Drug administration. The performance characteristics of this test have been verified by the [facility] Molecular Infectious Disease laboratory. The performance characteristics of this test have not been evaluated in individuals less than 14 years of age. Current Interpretive Data was last revised on 2023. Testing performed by: [facility], [address] [place] [address]., [address] Thin prep 07/29/2023 1:59 PM CDT 2023 10:51 AM CDT Dagmar Eli DO LAB MICROBIOLOGY - GENE RAL ORDERABLES Final Result Performing Organization Address City/[facility]/ZIP Co de Phone Number RAQUEL FARIA [address] [address] [place] [address] BJ from Last 3 Months or Most Recently Relevant to Health Maintenance [place] [facility] [place] Advance Directives For more information, please contact: [phone] * Full Code (Latest Code Status on File) Date Activated Date Inactivated Comments 03/15/2024 3:04 PM 03/16/2024 9:02 PM * Full Code Date Activated Date Inactivated Comments 03/15/2024 5:50 AM 03/15/2024 3:04 PM Full CPR in case of cardiopulmonary arrest * Full Code Date Activated Date Inactivated Comments 12/31/2022 10:55 PM 01/02/2023 9:46 PM * Full Code Date Activated Date Inactivated Comments 12/31/2022 6:43 AM 12/31/2022 10:55 PM Full CPR in case of cardiopulmonary arrest Care Teams Utilities Manager Relationship Specialty Start Date End Date No, Physician PCP - General 07/15/23 Dagmar Eli DO [address] [place] [address] Consulting Physician Obstetrics and Gynecology 01/02/23
--- OUTSIDE RECORDS SUMMARY | 2024-08-09 14:10 | XMS_ITS | Encounter Summary ---
Author Organization [facility] Address [address] [place] [address] Phone Care Team Providers Care Finance Attorney Name Role Phone Junior Greene MD Primary Care Provider [phone] Dagmar Eli DO Unavailable [phone] Priyanka, Physician Primary Care Provider [phone] Encounter Details Date Type Department Care Team (Late st Contact Info) Description 01/21/2017 Orders Only [facility] [address] [employer] [place] [address] Sarah Addison RN Social History Tobacco Use Types Packs/Day Years Used Date Smoking Tobacco: Never Assessed Comments Unknown Sex and Gender Information Value Date Recorded Sex Assigned at Not on file Legal Sex Female 11:36 AM SUPERVISOR DOG LICENSE OFFICER Gender Identity Not on file Sexual Orientation Not on file documented as of this encounter Plan of Treatment Not on file documented as of this encounter Visit Diagnoses Not on filedocumented in this encounter Care Teams Finance Attorney Relationship Specialty Start Date End Date Junior Greene MD [address] [place] [address] PCP - General 08/09/16 07/14/23 No, Physician PCP - General 07/15/23 Dagmar Eli DO [address] [place] [address] Consulting Physician Obstetrics and Gynecology 01/02/23 documented as of this encounter
--- OUTSIDE RECORDS SUMMARY | 2024-08-09 14:10 | XMS_ITS | Clinical Summary ---
Author Organization [facility] [employer] Address [address] [place] [address] Phone Care Team Providers Care Safety Compliance Specialist Name Role Phone Dagmar Eli DO Unavailable [phone] No, Physician Primary Care Provider [phone] Allergies Active Allergy Reactions Criticality Noted Date Comments Lactose Diarrhea Low 03/15/2024 Medications no115/iron/folic acid ( ORAL) Active ondansetron ODT (ZOFRAN-ODT) 4 mg [...] trimester 05/20/2022 Overview (08/12/2023): Dated by 6w4d US PNL: O+/I/-/-, NR, Hep C NR GC/CT: [...] 06/13/2022 Overview (03/05/2018): Dexamphetamine XR 30mg 1QD, 01-17-17 New Agreement Signed & UDS shows compliance. Adderall 20XR am. Encounters Date Type Department Care Team Description 07/26/2024 Results Follow-Up [facility] [address] [place] [address] Dagmar Eli DO 07/16/2024 2:36 PM CASINO ENFORCEMENT AGENT - 07/16/2024 11:59 PM CASINO ENFORCEMENT AGENT Hospital Encounter [address] [address] Screening for malignant neoplasm of cervix Discharge Disposition: Discharge to home or self care 07/16/2024 2:15 PM CASINO ENFORCEMENT AGENT Office Visit [facility] 1 [facility] [address] [place] [phone] Dagmar Eli DO Encounter for annual routine gynecological examination (Primary Dx); Screening for malignant neoplasm of cervix; Encounter for counseling regarding contraception; Breakthrough bleeding on Nexplanon 07/05/2024 Telephone [facility] 1 [facility] [address] [place] [phone] Dagmar Eli DO Patient issue/concern 06/22/2024 [facility] [address] [place] [phone] Dagmar Eli DO 06/03/2024 [facility] [address] [place] [phone] Dagmar Eli DO from Last 3 Months Immunizations Immunization Administration Dates Next Due DTaP 03/12/2007, 4,03/31/2003,12/30,2002 HPV9 02/02/2016 Hep B / HiB 03/31/2003,2002,2002 Hib (PRP-T) 11/17/2003 IPV 03/12/2007, 4,2002,09/23 Influenza, Trivalent, Preser vative Free, Intramuscular 03/16/2024 MMR 03/12/2007,08/18/2003 Meningococcal ACWY, Unspecified 12/21/2013 Tdap 03/16/2024,12/21/2013 Varicella 02/02/2016,09/29/2003 Medical History Medical History Date Comments Hypertension Social History Tobacco Use Types Packs/Day Years [...] How often do you attend chur or christian services? Never 03/15/2024 Do you belong to any clubs o r organizations such as sabianist groups, unions, fraternal or athletic groups, or [...] you are drinking? Patient does not drink 11/04/202 4 Q3: How often do you have si [...] staff should administer the PHQ-9) 0 03/15/2024 [facility] - Occupational Stress Questionnaire Answer Date Recorded [...] place to sleep or slept in a senior living (including now)? No 09/10/2023 [place] Depression Scale Answer Date Recorded [place] Depression Scale Total 0 01/02/2023 The thought [...] any time in the past 12 m [facility], were you homeless or living in a senior living (including now)? No 03/15/2024 Personal Safety Answer Date Recorded Have you ever been in or are you currently in a harmful physical or emotional relationship or is someone making you feel afraid or unsafe? Denies 03/15/2024 Comments No Sex and Gender Information Value Date Recorded Sex Assigned at Not on file Legal Sex Female 11:36 AM CASINO ENFORCEMENT AGENT Gender Identity Not on file Sexual Orientation Not on file Occupation Industry Job Start Date Job End Date Not on file Not on file Not on file Not on file Obstetrics History Para Term AB IAB SAB Ectopic Multiple Livin g Live Births 3 3 3 0 3 3 Date Outcome GA Total Labor Labor/2nd/3rd Weight Sex Type Anes PTL Che A1 A5 Name Clin 2021 Term 3.459 kg (7 lb 10 oz) M Vag-Sp ont Livin g 2022 Term 37w 6d 0h 36m 0h 17m/0h 19m 2.675 kg (5 lb 14.4 oz) M Vagina l Epidur al N Livin g 7 9 SUSAN HOLLAND , Dagmar pradhan, DO Complications:Precipitous La bor (<3 hours) Delivery Location:[facility] ([facility]) 2023 Term 39w 3d 0h 31m 0h 23m/0h 06m/0h 02m 3.711 kg (8 lb 2.9 oz) F Vagina l Epidur al N Livin g 8 9 GirlH dwayne Eli , Dagmar pradhan, DO Complications:Other Excessiv e Bleeding,Precipitous Labor (<3 hours) Delivery Location:[facility] ([facility]) Last Filed Vital Signs Vital Sign Reading Time Taken Comments Blood Pressure 122/80 07/16/2024 2:12 PM CASINO ENFORCEMENT AGENT Pulse 102 03/16/2024 4:15 PM CASINO ENFORCEMENT AGENT Temperature 35.8 C (96.4 F) 03/16/2024 4:15 PM CASINO ENFORCEMENT AGENT Respiratory Rate 17 03/16/2024 4:15 PM CASINO ENFORCEMENT AGENT Oxygen Saturation 95% 03/15/2024 2:14 PM CASINO ENFORCEMENT AGENT Inhaled Oxygen Concentration - - Weight 104.8 kg (231 lb) 07/16/2024 2:12 PM CASINO ENFORCEMENT AGENT Height 160 cm (5' 3 ) 03/01/2024 11:40 AM CDT Body Mass Index 40.92 03/01/2024 11:40 AM CDT Plan of Treatment Health Maintenance Due Date Last Done Comments HPV Vaccines (2 - 2-dose series) 08/01/2016 02/02/2016 Meningococcal B Vaccine (1 of 2 - Standard) 2018 Chlamydia and Gonorrhea (GC/CT) Screening 07/28/2024 07/29/2023, 05/20/2022 Depression Screening 03/04/2025 03/04/2024, 03/01/2024, 02/28/2024, Additional history exists Cervical Cancer Screening 07/16/20252024, 07/16/2024, 07/29/2023, Additional history exists Regular Well Visit/Exam 18-64 07/16/2025 07/16/2024 DTaP/Tdap/Td Vaccine (8 - Td or Tdap) 03/16/2034 03/16/2024, 12/21/2013, 03/12/2007, Additional history exists Hepatitis B Screening Completed 03/31/2003 , 2002, 2002 Varicella Vaccines Completed 02/02/2016, 09/29/2003 Hepatitis C Screening Completed 08/08/2023, 023 Influenza Vaccine Completed 03/16/2024 Pneumococcal vaccine <65 Aged Out No longer eligible based on patient's age to complete this topic Procedures Procedure Name Priority Date/Time Associated Diagnosis Comments PAP WITH REFLEX TO HIGH RISK HPV Routine 07/16/2024 11:20 AM CASINO ENFORCEMENT AGENT Screening for malignant neoplasm of cervix HIGH RISK HPV DNA DETECTION WITH GENOTYPING Routine 07/16/2024 10:15 AM CASINO ENFORCEMENT AGENT THINPREP PROCESSING (MOLECULAR COMPONENT) Routine 07/16/2024 9:30 AM CASINO ENFORCEMENT AGENT Screening for malignant neoplasm of cervix HEPATITIS [...] and Genotyping (Cytology Component) (07/16/2024 11:20 AM CASINO ENFORCEMENT AGENT) Thin prep (Pap test) 07/16/2024 11:20 AM CASINO ENFORCEMENT AGENT 07/16/2024 11:20 AM CASINO ENFORCEMENT AGENT Narrative PATHOLOGY CH - 07/21/2024 4:18 PM CDT [facility] Department of Pathology [address] [place] [address] Final Report with Addendum Note to Patients: [...] the details. Patient Name: TOD HOLLAND Address: [address] [place] [address] Gender: F : 2000 (Age: 23) Service: Location: N : [id number] [facility] #: [id number] Patient Type: SPECIMEN Taken: 07/16/2024 Received: 07/16/2024 Accessioned:: 07/19/2024 Reported: 07/21/2024 Physician(s): Dagmar E. Sreedhar, D.O. Dagmar E. Sreedhar, D.O. Diagnosis: SOURCE OF SPECIMEN Imaged Thinprep Pap Test w/ Reflex HPV - Switchboard Operator Assistant Cytologic Material: STATEMENT OF ADEQUACY - Satisfactory [...] this test have been verified by the [facility] laboratory. Correlate with reported cytology results, as applicable. Interpretive data last revised 22 BRITTNY Watkins(ASCP)Report Electronically Reviewed and Signed Out By BRITTNY Watkins(ASCP) 07/26/2024 11:47:20 Specimen(s) Received: A: Imaged Thinprep Pap Test w/ Reflex HPV - Switchboard Operator Assistant Cytologic Material Clinical History: The Pap test [...] determined by the Surgical Pathology Department at [facility] as part of an ongoing construction quality control manager program and in compliance with federally mandated [...] characteristics determined by the Surgical Pathology Department [facility]. It has not been cleared or approved by the [place]. S. Food and Drug Administration. Dagmar Eli DO LAB CYTOLOGY ORDERABLES Final Result PATHOLOGY [address] [place] [address] * High Risk HPV DNA Detection with Genotyping (Molecular component) (07/16/2024 10:15 AM CASINO ENFORCEMENT AGENT) HPV HR 16 Not Detected Not Detected [facility] Comment:Testing performed by : [facility], [address] [place] [place]., [address] HPV HR 18 Not Detected Not Detected [facility] Comment:Testing performed by : [facility], [address] [place]., [address] HPV HR Non 16/18 Not Detected Not [...] this test have been verified by the [facility] Molecular Infectious Disease laboratory. Correlate with separately reported cytology results, as applicable. Interpretive data last revised 22 Testing performed by: [facility], [address] [place]., [address] Endocervical 07/16/2024 10:1 5 AM CASINO ENFORCEMENT AGENT 07/22/2024 12:52 PM CDT Dagmar Eli DO LAB BODY FLUIDS AND STO OLS ORDERABLES Final Result Performing Organization Address [facility] Co de Phone Number [facility]QUEL [address] [place] [address] BJ * ThinPrep processing (Molecular component) (07/16/2024 9:30 AM CASINO ENFORCEMENT AGENT) Pathologist [facility] ThinPrep processing (Molecular component) Specimen received for processing. [facility] Comment:Testing performed by : [facility], [address] [place]., [address] Endocervical 07/16/2024 9:30 AM CASINO ENFORCEMENT AGENT 07/19/2024 2:14 PM CDT Dgamar Eli DO LAB BODY FLUIDS AND STO OLS ORDERABLES Final Result Performing Organization Address City/[facility] Co de Phone Number [facility] [id number] [employer] [address] [place], [place] [id number] [facility] * Hepatitis C antibody Blood (08/08/2023 11:30 AM CDT) Hep C Ab Nonreactive Nonreactive Comment: Interpretive [...] 0 AM CDT 08/08/2023 7:52 PM CDT Dagmar Eli DO LAB MICROBIOLOGY - GENE RAL ORDERABLES Edited Result - Final [facility]IA [id number] [place] [address] * N. gonorrhoeae/C. trachomatis Amplification Thin prep (07/29/2023 1:59 PM CDT) C. trachomatis Not Detected [facility] Comment:Testing performed by : [facility], [address] [place] [address]., [id number] N. gonorrhoeae Not Detected [facility] Comment: Interpretive Data This assay detects Chlamydia trachomatis and Neisseria gonorrhoeae by nucleic acid amplification testing (NAAT). This assay has been cleared by the [place] Food and Drug administration. The performance characteristics of this test have been verified by the [facility] laboratory. The performance characteristics of this test have not been evaluated in individuals less than 14 years of age. Current Interpretive Data was last revised on 2023. Testing performed by: [facility], [address] [place] [address]., [id number] Thin prep 07/29/2023 1:59 PM CDT 2023 10:51 AM CDT Dagmar Eli DO LAB MICROBIOLOGY - GENE RAL ORDERABLES Final Result [facility] FARIA [address] Department [place] [address] [facility] from Last 3 Months or Most Recently Relevant to Health Maintenance Insurance [employer] [facility] [employer] [facility] [employer] [facility] [id number] [id number] [place] ANTHEM ACCESS Advance Directives For more information, please contact: [phone] * Full Code (Latest Code Status on [...] in case of cardiopulmonary arrest Care Teams Safety Compliance Specialist Relationship Specialty Start Date End Date No, Physician PCP - General 07/15/23 Dagmar Eli DO [address] [place] [address] Consulting Physician Obstetrics and Gynecology 01/02/23
== END 2024-08-09 13:47 | disposition home or self-care (01) ==
PROVIDERS: Emergency Provider Nurse Practitioner
DX: B34.9 Viral infection, unspecified (principal); Z20.822 Contact with and (suspected) exposure to COVID-19
CPT/HCPCS: 87426; 87804; 99212; G0463